=== PATIENT | female | born 1950 | race Hispanic/Latino ===

== ENCOUNTER 2018-05-07 08:13 | Day surgery (SDC) | payer OTHER ==
[2018-05-02 07:47] VITALS: BMI 17.5
[2018-05-07 10:24] VITALS: O2SAT 100
[2018-05-07] MEDS ORDERED: Lactated Ringer's 500 ML IV ONE (10:24)
[2018-05-07] MEDS ORDERED: Propofol 10 mg/ml Inj (20 ML) ONE (11:43)
[2018-05-07 12:25] VITALS: TEMP 97
[2018-05-07 12:44] VITALS: BP 121/63; PULSE 59; RESP 18
== END 2018-05-07 13:22 | disposition home or self-care (01) ==
LOC: H.ENDO 08:13
PROVIDERS: ATTEND Internal Medicine Gastroenterology
DX: K57.30 Diverticulosis of large intestine without perforation or abscess without bleeding (principal); R19.5 Other fecal abnormalities
CPT/HCPCS: 45378; J2001; J2704; J7120